=== PATIENT | female | born 1980 | race Caucasian/White ===

== ENCOUNTER 2016-09-19 14:19 | Emergency (ER) | payer BC, OTHER | END 2016-09-19 14:58 | disposition home or self-care (01) | LOC: NAV ERS 14:19 | DX: S09.90XA Unspecified injury of head, initial encounter (principal); F17.210 Nicotine dependence, cigarettes, uncomplicated; W55.12XA Struck by horse, initial encounter | CPT/HCPCS: 99283 ==